=== PATIENT | female | born 1960 | race African-American/Black ===

== ENCOUNTER 2018-12-16 06:12 | Day surgery (SDC) | payer OTHER ==
[2018-12-15 10:05] VITALS: BMI 51.7
[2018-12-16] MEDS ORDERED: EPINEPHrine 1:1,000 1 MG/1 ML - 30ML VIAL (INJECTION) ONE (07:04)
[2018-12-16] MEDS ORDERED: ROPIVACAINE HCL 0.5% 30ML VIAL ONE (07:20)
[2018-12-16] MEDS ORDERED: MIDAZOLAM HCL 2 MG/2 ML SINGLE DOSE VIAL ONE ×2 (07:20→07:53)
[2018-12-16] MEDS ORDERED: PROPOFOL 20 ML ONE ×2 (07:53)
[2018-12-16] MEDS ORDERED: ALBUTEROL SO4 8 GM HFA INHALER IH ONE (07:53)
[2018-12-16] MEDS ORDERED: ceFAZolin SODIUM 1 GM VIAL ONE (07:53)
[2018-12-16] MEDS ORDERED: ePHEDrine SULFATE 50 MG/1 ML AMPULE ONE (07:53)
[2018-12-16] MEDS ORDERED: SUCCINYLCHOLINE CHLORIDE 200 MG/10 ML SYRINGE ONE (07:53)
[2018-12-16] MEDS ORDERED: DEXMEDETOMIDINE HCL 200 MCG/2 ML IVPB ONE (07:55)
[2018-12-16] MEDS ORDERED: ONDANSETRON 4 MG/2 ML VIAL ONE (08:27)
[2018-12-16] MEDS ORDERED: KETOROLAC TROMETHAMINE 30 MG/1 ML VIAL ONE (08:27)
[2018-12-16] MEDS ORDERED: DEXAMETHASONE SOD PHOSPHATE 4 MG/1 ML VIAL ONE (08:27)
[2018-12-16] MEDS ORDERED: ONDANSETRON 4 MG/2 ML VIAL IVPUSH PRN (09:10)
[2018-12-16] MEDS ORDERED: oxyCODONE HCL 5 MG TABLET PO PRN ×2 (09:10)
[2018-12-16 11:14] VITALS: BP 111/77; PULSE 71; TEMP 97.5
--- NOTE | 2018-12-16 11:19 | OP ---
DATE OF OPERATION: 12/16/2018 Done at [facility] SURGEON: Dorothy Cohn MD GINGER FARMER: KYLAH Harper PREOPERATIVE DIAGNOSES: 1. Right shoulder adhesive capsulitis. 2. Right shoulder impingement syndrome. 3. Right shoulder acromioclavicular degenerative joint disease. 4. Right shoulder superior labral tear, anterior and posterior synovitis. POSTOPERATIVE DIAGNOSES: 1. Right shoulder adhesive capsulitis. 2. Right shoulder impingement syndrome. 3. Right shoulder acromioclavicular degenerative joint disease. 4. Right shoulder superior labral tear, anterior and posterior synovitis. PROCEDURE: 1. Right shoulder arthroscopy with lysis and resection of adhesions, CPT code 93143. 2. Right shoulder arthroscopy with subacromial decompression, CPT code 88893. 3. Right shoulder arthroscopy with resection of clavicle acromioclavicular joint, CPT code 69935. 4. Right shoulder arthroscopy with debridement, CPT code 37836. FINDINGS: 1. Glenohumeral synovitis. 2. Superior labral tear anterior and posterior type 1. 3. Partial biceps tear 10%. 4. Evidence of previous rotator cuff avulsion with healing onto the greater tuberosity and diffuse 30% thinning of the supraspinatus. 5. Type 3 acromion with anterior spurring. 6. Inferior spurs clavicle, degenerative joint disease. 7. Thickened scar subacromial space most pronounced anteriorly and laterally. 8. Posterior labral fraying. 9. Glenohumeral synovitis with adhesions, scar tissue. PROCEDURE: Informed consent was obtained. The patient was taken to the operating room, where the upper extremity was prepped and draped in a sterile fashion. A scalene block was performed by Anesthesia. Manipulation under anesthesia was allowed for full range of motion. Using standard arthroscopic technique, a posterior incision portal was made, which allowed for introduction of a camera into the glenohumeral joint. Under direct visualization, an anterior incision and portal was made. Extensive and thickened synovitis was debrided. Fraying of the labrum was debrided and the superior labrum from anterior to posterior was identified with all loose areas debrided. Any labral tears were taken to a stable rim including identified SLAP lesions. All loose cartilage was debrided. The rotator cuff was identified and evaluated, as were the subacromial and bursal surfaces. The posterior incision portal was redirected to the subacromial space, where a lateral incision and portal was made. Excessive and thickened synovium was removed throughout the subacromial space including the anterior scar tissue, posterior bursa and lateral bursa. The type 2 acromion was converted to a flattened type 1, removing the anterior and lateral spurring. An accessory portal was made at the acromioclavicular joint, removing the inferior spur of the distal clavicle at the acromioclavicular joint allowing for a distal clavicle partial resection. Please note that 1cm of undersurface of clavicle was removed extending into the intra articular portion and through an accessory portal. The shoulder was once again reexamined and all impingement was removed. The shoulder was drained. A single suture was placed in all portals and a sterile dressing was placed. The patient was transferred to the recovery room without complication. The PA listed above was present and assisted at surgery. Their presence was absolutely medically necessary for the completion of the procedure. They helped hold the arthroscopy, pass instruments (and implants when indicated) and the procedure could not have been completed without their assistance. DOROTHY COHN M.D. [id number]
== END 2018-12-16 11:05 | disposition home or self-care (01) ==
LOC: FASU 06:12
PROVIDERS: ATTEND Orthopaedic Surgery
PROC: 0RNJ4ZZ Release Right Shoulder Joint, Percutaneous Endoscopic Approach (ICD-10-PCS; 2018-12-16)
PROC: 0PB94ZZ Excision of Right Clavicle, Percutaneous Endoscopic Approach (ICD-10-PCS; principal; 2018-12-16 08:30)
DX: M75.01 Adhesive capsulitis of right shoulder (principal); M75.41 Impingement syndrome of right shoulder; M24.111 Other articular cartilage disorders, right shoulder; M65.811 Other synovitis and tenosynovitis, right shoulder
CPT/HCPCS: 94760